=== PATIENT | female | born 1965 | race Caucasian/White ===

== ENCOUNTER 2019-09-24 08:14 | Day surgery (SDC) | payer OTHER ==
[~2019-09-24] VITALS: Ht 170.2 cm; Wt 83.2 kg
[~2019-09-24 08:14] MED LIST: DM/P240L8 PO
[2019-09-24] MEDS ORDERED: PROPOFOL 1% 20 ML VIAL IVP ONE (08:15)
[2019-09-24] MEDS ORDERED: ROCURONIUM BROMIDE 10 MG/ML 5 ML VIAL IVP ONE (08:15)
[2019-09-24] MEDS ORDERED: MIDAZOLAM HCL 2 MG/2 ML VIAL IVP ONE (08:15)
[2019-09-24] MEDS ORDERED: ONDANSETRON HCL 4 MG/2 ML VIAL IVP ONE (08:15)
[2019-09-24] MEDS ORDERED: DEXAMETHASONE SOD PHOS 4 MG/ML VIAL IVP ONE (08:15)
[2019-09-24] MEDS ORDERED: SUCCINYLCHOLINE CHLORIDE 20 MG/ML 10 ML VIAL IVP ONE (08:15)
[2019-09-24] MEDS ORDERED: FentaNYL CITRATE-PF 100 MCG/2 ML VIAL IVP ONE (08:15)
[2019-09-24] MEDS ORDERED: LIDOCAINE/PF 2% 5 ML SYRINGE IVP ONE (08:15)
[2019-09-24] MEDS ORDERED: RINGERS SOLUTION,LACTATED 1,000 ML IV ONE ×2 (08:32→09:00)
[2019-09-24] MEDS ORDERED: CLINDAMYCIN 600 MG/D5% WATER 50 ML IV ONE (09:00)
[2019-09-24 09:08] LABS: BASOPHILS % (AUTO) 0.7 % (0.0-2.0); EOSINOPHILS % (AUTO) 3.5 % (1.0-6.0); HEMATOCRIT 43.6 % (36-46); HEMOGLOBIN 14.1 g/dL (12.0-16.0); LYMPHOCYTES # (AUTO) 1.9 K/uL (1.0-4.8); LYMPHOCYTES % (AUTO) 30.5 % (22.0-44.0); MEAN CORPUSCULAR HEMOGLOBIN 28.4 pg (26.0-34.0); MEAN CORPUSCULAR HGB CONC 32.4 G/dL (31.0-37.0); MEAN CORPUSCULAR VOLUME 88 fL (80-100); MONOCYTES # (AUTO) 0.4 K/uL (0.1-1.0); NEUTROPHILS # (AUTO) 3.6 K/uL (1.8-7.7); NEUTROPHILS % (AUTO) 58.3 % (40.0-70.0); PLATELET COUNT (AUTO) 202 K/uL (150-450); RED BLOOD CELL COUNT(AUTO) 4.97 MIL/uL (4.00-5.20); RED CELL DISTRIBUTION WIDTH 13.5 % (11.5-14.5)
[2019-09-24 09:20] LABS: ANION GAP 10 mmol/L (8-16); CALCIUM, TOTAL 9.2 mg/dL (8.8-10.5); CARBON DIOXIDE 27 mmol/L (22-29); CHLORIDE 107 mmol/L (98-107); CREATININE 0.83 mg/dL (0.60-1.30); GLOMERULAR FILTR. RATE CALC > 60 mL/min (>60); GLUCOSE,RANDOM 107 mg/dL (70-110); SODIUM SERUM 144 mmol/L (136-145); UREA NITROGEN, BLOOD 10 mg/dL (7-18)
[2019-09-24 09:21] LABS: INR 1.1 (0.9-1.1); PROTHROMBIN TIME 10.9 SEC (9.4-11.6)
[2019-09-24 09:26] LABS: ALANINE AMINOTRANSFERASE 47 U/L (12-78); ALBUMIN 4.1 g/dL (3.4-5.0); ALKALINE PHOSPHATASE 73 U/L (46-116); ASPARTATE AMINOTRANSFERASE 29 U/L (15-37); BILIRUBIN,TOTAL 0.4 mg/dL (0.1-1.0); TOTAL PROTEIN, SERUM 7.5 g/dL (6.4-8.2)
[2019-09-24] MEDS ORDERED: BUPIVACAINE LIPOSOME/PF 1.3%-13.3MG/ML SUSPENSION 10 ML VIAL INJ ONE (09:30)
[2019-09-24] MEDS ORDERED: LIDOCAINE/PF 1% 30 ML VIAL ONE (09:32)
[2019-09-24] MEDS ORDERED: SODIUM CL IRRIG SOLN BAG 12,000 ML IRRIG ONE ×2 (09:32→12:52)
[2019-09-24] MEDS ORDERED: BUPIVACAINE HCL/PF 0.5% 30 ML VIAL ONE (09:32)
[2019-09-24] MEDS ORDERED: RINGERS SOLUTION,LACTATED 2,000 ML IV ONE (09:33)
[2019-09-24] MEDS ORDERED: EPINEPHrine 1:1,000 [1 MG/ML] AMP ONE (10:01)
[2019-09-24] MEDS ORDERED: SODIUM CL IRRIG SOLN BAG 6,000 ML IRRIG ONE ×2 (11:02→13:45)
[2019-09-24] MEDS ORDERED: HYDROmorphone 2 MG/ML SYRINGE IVP PRN (14:30)
[2019-09-24] MEDS ORDERED: MEPERIDINE-PF 25 MG/ML VIAL IVP PRN (14:30)
== END 2019-09-24 16:40 | disposition home or self-care (01) ==
LOC: SDS 08:14
PROVIDERS: ATTEND Orthopaedic Surgery
DX: S73.191A Other sprain of right hip, initial encounter (principal); S76.011A Strain of muscle, fascia and tendon of right hip, initial encounter; X58.XXXA Exposure to other specified factors, initial encounter; Y93.89 Activity, other specified; Y92.89 Other specified places as the place of occurrence of the external cause; Y99.8 Other external cause status; Z79.899 Other long term (current) drug therapy; Z79.01 Long term (current) use of anticoagulants
CPT/HCPCS: 29916; 36415; 80053; 85025; 85610; 85730; 93005; C1713; J0171; J0330; J1100; J2250; J2405; J2704; J3010; J3490 ×5; J7120

== ENCOUNTER 2023-12-04 12:26 | Inpatient (IN) | payer MEDICAID, OTHER ==
[~2023-12-04] VITALS: Ht 167.6 cm; Wt 76.3 kg
[2023-12-04] MEDS ORDERED: DULO-114 PO (12:56)
[2023-12-04] MEDS ORDERED: OLME20TA73 PO (12:57)
[2023-12-04] MEDS ORDERED: TRAZ-257 PO (12:57)
[2023-12-04 13:37] LABS: BASOPHILS % (AUTO) 0.6 % (0.0-2.0); EOSINOPHILS % (AUTO) 1.3 % (1.0-6.0); HEMATOCRIT 42.5 % (36-46); HEMOGLOBIN 13.9 g/dL (12.0-16.0); LYMPHOCYTES # (AUTO) 1.4 K/uL (1.0-4.8); LYMPHOCYTES % (AUTO) 27.4 % (22.0-44.0); MEAN CORPUSCULAR HEMOGLOBIN 28.6 pg (26.0-34.0); MEAN CORPUSCULAR HGB CONC 32.8 G/dL (31.0-37.0); MEAN CORPUSCULAR VOLUME 87 fL (80-100); MONOCYTES # (AUTO) 0.4 K/uL (0.1-1.0); MONOCYTES % (AUTO) 8.9 % (2.0-9.0); NEUTROPHILS # (AUTO) 3.1 K/uL (1.8-7.7); NEUTROPHILS % (AUTO) 61.8 % (40.0-70.0); PLATELET COUNT (AUTO) 183 K/uL (150-450); RED BLOOD CELL COUNT(AUTO) 4.88 MIL/uL (4.00-5.20); RED CELL DISTRIBUTION WIDTH 14.2 % (11.5-14.5)
[2023-12-04 13:49] LABS: COVID AG,FIA SOURCE NASAL SWAB
[2023-12-04 13:52] LABS: ANION GAP 9 mmol/L (8-16); CALCIUM, TOTAL 9.4 mg/dL (8.8-10.5); CARBON DIOXIDE 26 mmol/L (22-29); CHLORIDE 105 mmol/L (98-107); CREATININE 0.69 mg/dL (0.60-1.30); GLOMERULAR FILTR. RATE CALC > 60 mL/min (>60); GLUCOSE,RANDOM 124 mg/dL (70-110); POTASSIUM 3.8 mmol/L (3.5-5.1); SODIUM SERUM 140 mmol/L (136-145); UREA NITROGEN, BLOOD 10 mg/dL (7-18)
[2023-12-04 13:57] LABS: ACETAMINOPHEN < 2 mcg/mL (10-30); ALANINE AMINOTRANSFERASE 25 U/L (12-78); ALKALINE PHOSPHATASE 78 U/L (46-116); ASPARTATE AMINOTRANSFERASE 21 U/L (15-37); BILIRUBIN,TOTAL 0.5 mg/dL (0.1-1.0); TOTAL PROTEIN, SERUM 7.2 g/dL (6.4-8.2)
[2023-12-04 14:10] LABS: SARS-COV2 (COVID) ANTIGEN,FIA Negative (Negative)
[2023-12-04 14:41] LABS: PH,URINE DRUG SCREEN 6.5 (5.0-8.0)
[2023-12-04 14:46] LABS: AMPHET/METH SCREEN,URINE NEGATIVE (NEGATIVE); BARBITURATE SCREEN, URINE NEGATIVE (NEGATIVE); BENZODIAZEPINES SCREEN,URINE NEGATIVE (NEGATIVE); CANNABINOID SCREEN,URINE POSITIVE (NEGATIVE); COCAINE SCREEN,URINE NEGATIVE (NEGATIVE); METHADONE SCREEN, URINE NEGATIVE (NEGATIVE); OPIATE SCREEN,URINE NEGATIVE (NEGATIVE); PHENCYCLIDINE SCREEN,URINE NEGATIVE (NEGATIVE)
[2023-12-04 14:50] LABS: SALICYLATE 2.4 mg/dL (2.8-20.0)
[2023-12-04 14:51] LABS: ALCOHOL, URINE DRUG SCREEN NEGATIVE (NEGATIVE)
[2023-12-04 14:58] LABS: ALCOHOL, BLOOD (SERUM) < 3 mg/dL (0-10)
[2023-12-04] MEDS: ACETAMINOPHEN 325 MG TABLET PO ONE (15:03)
[2023-12-04] MEDS: LORazepam 1 MG TABLET PO ONE (19:17)
[2023-12-04] MEDS: DULoxetine HCL 30 MG CAPSULE PO ONE (21:18)
[2023-12-04] MEDS: TraZODone HCL 50 MG TABLET PO ONE (23:34)
[2023-12-05] MEDS: ZOLPIDEM TARTRATE 10 MG TABLET PO PRN (01:56)
[2023-12-05 01:58] VITALS: BP 140/80; PULSE 79; RESP 18; TEMP 97.8; O2SAT 98
[2023-12-05] MEDS ORDERED: ONDANSETRON HCL 4 MG TABLET PO PRN (06:45)
[2023-12-05] MEDS ORDERED: MAGNESIUM HYDROXIDE SUSPENSION 30 ML UDCUP PO PRN (06:45)
[2023-12-05] MEDS ORDERED: LOPERAMIDE HCL 2 MG CAPSULE PO PRN (06:45)
[2023-12-05] MEDS ORDERED: NICOTINE 14 MG/24 HOUR PATCH TD PRN (06:45)
[2023-12-05] MEDS ORDERED: PETROLATUM,WHITE 28 GM JELLY TP PRN (06:45)
[2023-12-05] MEDS ORDERED: ACETAMINOPHEN 325 MG TABLET PO PRN (06:45)
[2023-12-05] MEDS ORDERED: GuaiFENesin/D-METHORPHAN [SUGAR-FREE] 200-20MG/10 ML SYRUP UDCUP PO PRN (06:45)
[2023-12-05] MEDS ORDERED: CloNIDine HCL 0.1 MG TABLET PO PRN (06:45)
[2023-12-05] MEDS ORDERED: MAG HYDROX/ALUMINUM HYD/SIMETH ES 30 ML SUSPENSION UDCUP PO PRN (06:45)
[2023-12-05] MEDS ORDERED: ALBUTEROL SULFATE HFA 90 MCG/PUFF 8 GM INHALER IH PRN (06:45)
[2023-12-05 08:20] VITALS: BP 142/79; PULSE 76; RESP 18; TEMP 97.3; O2SAT 97
[2023-12-05] MEDS: LORazepam 2 MG TABLET PO PRN (10:38)
[2023-12-05] MEDS: DULoxetine HCL 30 MG CAPSULE PO SCH (11:29)
[2023-12-05] MEDS: DOCUSATE SODIUM 100 MG CAPSULE PO PRN (11:53)
[2023-12-05] MEDS: HALOPERIDOL 5 MG TABLET PO PRN (11:53)
[2023-12-05 14:20] VITALS: BP 119/73; RESP 16; O2SAT 96
[2023-12-05] MEDS: OLMESARTAN MEDOXOMIL 20 MG TABLET PO SCH (14:27)
[2023-12-05 20:00] VITALS: BP 125/78; PULSE 80; RESP 18; TEMP 98
[2023-12-05] MEDS: TraZODone HCL 100 MG TABLET PO SCH (20:38)
[2023-12-06 08:20] VITALS: BP 125/81; PULSE 89; RESP 16; TEMP 97.4; O2SAT 97
[2023-12-06 08:47] LABS: HEMOGLOBIN A1C 5.8 % (3.8-5.6)
[2023-12-06 09:07] LABS: CHOL/HDL RATIO 2.5 (3.9-5.7); THYROID STIMULATING HORMONE 0.97 uIU/mL (0.36-3.74)
[2023-12-06 20:00] VITALS: BP 113/64; PULSE 71; RESP 17; TEMP 98
[2023-12-07 08:20] VITALS: BP 112/79; PULSE 89; RESP 16; TEMP 98; O2SAT 97
[2023-12-07] MEDS ORDERED: OLME5TAB32 PO (14:03)
[2023-12-07] MEDS ORDERED: TRAZ-257 PO (14:03)
[2023-12-07] MEDS ORDERED: DULO-114 PO (14:03)
== END 2023-12-07 13:08 | disposition home or self-care (01) | DRG 751 ==
LOC: EMS 12:32 → B3A 22:53
PROVIDERS: ADMIT Psychiatry & Neurology Psychiatry; ATTEND Psychiatry & Neurology Psychiatry
PROC: GZHZZZZ Group Psychotherapy (ICD-10-PCS; principal; 2023-12-05)
DX: F33.2 Major depressive disorder, recurrent severe without psychotic features (principal); R45.851 Suicidal ideations; G43.909 Migraine, unspecified, not intractable, without status migrainosus; F41.9 Anxiety disorder, unspecified; M54.9 Dorsalgia, unspecified; J45.909 Unspecified asthma, uncomplicated; G89.29 Other chronic pain; Z20.822 Contact with and (suspected) exposure to COVID-19; G47.00 Insomnia, unspecified; F12.10 Cannabis abuse, uncomplicated; Z88.2 Allergy status to sulfonamides; Z87.891 Personal history of nicotine dependence; Z88.0 Allergy status to penicillin; Z88.8 Allergy status to other drugs, medicaments and biological substances; Z79.899 Other long term (current) drug therapy; Z86.73 Personal history of transient ischemic attack (TIA), and cerebral infarction without residual deficits; Z90.710 Acquired absence of both cervix and uterus
CPT/HCPCS: 71045; 80053; 80061; 80307; 83036; 84443; 85025; 87081; 99285; G0480; G0481; 36415-L1; 36415-TC